=== PATIENT | female | born 1955 | race American Indian/Alaskan Native ===

== ENCOUNTER 2017-10-06 07:19 | Emergency (ER) | payer OTHER, BC ==
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
--- NOTE | 2017-10-06 12:56 | XRay Report ---
CERVICAL SPINE RADIOGRAPHS INDICATION: Cervical tenderness on left. COMPARISON: None similar. FINDINGS: AP, open-mouth, swimmer's and lateral views of the cervical spine, 5 images demonstrate unremarkable dens and symmetric lateral masses. Clear visualized lung apices. Subtle spina bifida occulta from T1-T3 possible. Slight atherosclerotic calcifications in the left neck. Bilateral earrings partly obscure grossly intact craniocervical articulation on the lateral view with normal prevertebral soft tissues and preserved airway. Normal vertebral body stature and alignment, allowing for mild degenerative spurring from C4 through C6. Slight C5-C6 disc narrowing may be noted. Grossly preserved remainder disc heights. CONCLUSION: No acute cervical spine radiographic abnormality with mild, age-appropriate degenerative changes, as described. Please correlate. Thank you for the opportunity to participate in this patient's care.
[2017-10-06] MEDS ORDERED: ULTRAM PO ONE (13:16)
[2017-10-06 13:35] VITALS: BP 186/99
== END 2017-10-06 14:08 | disposition home or self-care (01) ==
LOC: ED 07:19
DX: S46.912A Strain of unspecified muscle, fascia and tendon at shoulder and upper arm level, left arm, initial encounter (principal); S16.1XXA Strain of muscle, fascia and tendon at neck level, initial encounter; I10 Essential (primary) hypertension; Z88.1 Allergy status to other antibiotic agents; V49.49XA Driver injured in collision with other motor vehicles in traffic accident, initial encounter; Y93.89 Activity, other specified; Y99.8 Other external cause status; Y92.488 Other paved roadways as the place of occurrence of the external cause
CPT/HCPCS: 72040

== ENCOUNTER 2021-02-01 19:25 | Emergency (ER) | payer BC, MEDICARE ==
[2021-02-01 20:08] VITALS: BP 181/100
[2021-02-01] MEDS ORDERED: ACETAMINOPHEN 325 MG TAB PO ONE (21:13)
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
== END 2021-02-01 23:03 | disposition home or self-care (01) ==
LOC: ED 19:25
DX: S80.01XA Contusion of right knee, initial encounter (principal); T14.8XXA Other injury of unspecified body region, initial encounter; I10 Essential (primary) hypertension; V43.52XA Car driver injured in collision with other type car in traffic accident, initial encounter; Y93.89 Activity, other specified; Y92.89 Other specified places as the place of occurrence of the external cause; Y99.8 Other external cause status
CPT/HCPCS: 99283